=== PATIENT | male | born 1990 | race Two or more races ===

== ENCOUNTER 2020-05-03 21:25 | Emergency (ER) | payer OTHER ==
[~2020-05-03] VITALS: Ht 180.3 cm; Wt 93.3 kg
[2020-05-03 21:34] VITALS: BP 137/101
[2020-05-03] MEDS ORDERED: KETOROLAC 30 MG/1 ML ONE (22:49)
--- NOTE | 2020-05-03 22:54 | NUR ---
TASK RN: PT MEDICATED PER MAR FOR PAIN
[2020-05-03] MEDS ORDERED: KETOROLAC 30 MG/1 ML IM ONE (23:00)
== END 2020-05-03 23:16 | disposition home or self-care (01) ==
LOC: ED 23:01
DX: S92.415A Nondisplaced fracture of proximal phalanx of left great toe, initial encounter for closed fracture (principal); X58.XXXA Exposure to other specified factors, initial encounter; Y93.01 Activity, walking, marching and hiking; Y92.098 Other place in other non-institutional residence as the place of occurrence of the external cause; Y99.8 Other external cause status
CPT/HCPCS: 73660; 96372; 99283; J1885

== ENCOUNTER 2020-08-02 21:17 | Emergency (ER) | payer OTHER ==
[~2020-08-02] VITALS: Ht 180.3 cm; Wt 97.5 kg
[2020-08-02 21:22] VITALS: BP 130/93
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
--- NOTE | 2020-08-02 22:00 | NUR ---
Pt left before discharge instructions could be given or discharge vitals could be taken.
--- NOTE | 2020-08-02 22:08 | NUR ---
PT AT FRONT DOOR REQUESTING DISCHARGE INSTRUCTIONS, MISUNDERSTANDING TO WHERE TO GET THEM. ALL QUESTIONS ANSWERED, AMBUALTE OUT WITH FMAILY MEMBER, DAMIR
== END 2020-08-02 22:02 | disposition home or self-care (01) ==
LOC: ED 21:50
DX: S06.0X0A Concussion without loss of consciousness, initial encounter (principal); V49.49XA Driver injured in collision with other motor vehicles in traffic accident, initial encounter; Y93.89 Activity, other specified; Y92.488 Other paved roadways as the place of occurrence of the external cause; Y99.8 Other external cause status
CPT/HCPCS: 99283